=== PATIENT | male | born 1940 | race African-American/Black ===

== ENCOUNTER 2020-08-10 08:50 | Inpatient (IN) | payer OTHER ==
[~2020-08-10] VITALS: Ht 180.3 cm; Wt 77.1 kg
[2020-08-10] MEDS ORDERED: ATORVASTATIN CA20 MG (09:30)
[2020-08-10] MEDS ORDERED: AMLODIPINE BESYL5 MG (09:30)
[2020-08-10] MEDS ORDERED: METOPROLOL TAR100 MG (09:31)
[2020-08-10] MEDS ORDERED: LOSARTAN-HCTZ1 EAC2 (09:31)
[2020-08-10] MEDS ORDERED: LEVOTHYROXINE75 MCG (09:31)
== END 2020-08-16 14:18 | disposition home or self-care (01) | DRG 603 ==
LOC: ER 08:50 → SEC-K 14:24 → MEDI 14:24 → SEC-K 08-11 11:49 → MEDI 08-11 14:34
PROVIDERS: ADMIT Internal Medicine; ATTEND Internal Medicine
PROC: 8E0ZXY6 Isolation (ICD-10-PCS; principal; 2020-08-11)
DX: L03.113 Cellulitis of right upper limb (principal); L03.116 Cellulitis of left lower limb; L03.115 Cellulitis of right lower limb; E78.49 Other hyperlipidemia; E86.0 Dehydration; I87.2 Venous insufficiency (chronic) (peripheral); Z21 Asymptomatic human immunodeficiency virus [HIV] infection status; I12.9 Hypertensive chronic kidney disease with stage 1 through stage 4 chronic kidney disease, or unspecified chronic kidney disease; N18.9 Chronic kidney disease, unspecified; Z20.828 Contact with and (suspected) exposure to other viral communicable diseases; W18.39XA Other fall on same level, initial encounter

== ENCOUNTER → 2020-08-22 | Emergency (ER) | payer OTHER ==
[~2020-08-22] VITALS: Ht 180.3 cm; Wt 72.6 kg
[~2020-08-22] MED LIST: AMLODIPINE BESYL5 MG; ATORVASTATIN CA20 MG; LEVOTHYROXINE75 MCG; LOSARTAN-HCTZ1 EAC2; METOPROLOL TAR100 MG
== END | disposition home or self-care (01) ==
LOC: ER 09:03
DX: Z48.02 Encounter for removal of sutures (principal)

== ENCOUNTER 2021-05-05 20:08 | Inpatient (IN) | payer OTHER ==
[~2021-05-05] VITALS: Ht 152.4 cm; Wt 59.0 kg
== END 2021-06-06 17:54 | disposition expired | DRG 291 ==
LOC: ER 20:08 → ICU-2 05-06 00:48 → ICU 05-06 20:02
PROVIDERS: ADMIT Internal Medicine; ATTEND Internal Medicine
PROC: 3E0F7SF Introduction of Other Gas into Respiratory Tract, Via Natural or Artificial Opening (ICD-10-PCS; 2021-05-07)
PROC: 0W993ZX Drainage of Right Pleural Cavity, Percutaneous Approach, Diagnostic (ICD-10-PCS; principal; 2021-05-09)
PROC: 0BH17EZ Insertion of Endotracheal Airway into Trachea, Via Natural or Artificial Opening (ICD-10-PCS; 2021-05-09)
PROC: 5A1955Z Respiratory Ventilation, Greater than 96 Consecutive Hours (ICD-10-PCS; 2021-05-09)
PROC: 0W9930Z Drainage of Right Pleural Cavity with Drainage Device, Percutaneous Approach (ICD-10-PCS; 2021-05-10)
PROC: 02HV33Z Insertion of Infusion Device into Superior Vena Cava, Percutaneous Approach (ICD-10-PCS; 2021-05-10)
PROC: 0HB5XZX Excision of Chest Skin, External Approach, Diagnostic (ICD-10-PCS; 2021-05-10)
PROC: 30233N1 Transfusion of Nonautologous Red Blood Cells into Peripheral Vein, Percutaneous Approach (ICD-10-PCS; 2021-05-11)
PROC: 4A12X4Z Monitoring of Cardiac Electrical Activity, External Approach (ICD-10-PCS; 2021-05-11)
PROC: 5A1D70Z Performance of Urinary Filtration, Intermittent, Less than 6 Hours Per Day (ICD-10-PCS; 2021-05-11)
DX: I13.2 Hypertensive heart and chronic kidney disease with heart failure and with stage 5 chronic kidney disease, or end stage renal disease (principal); J96.01 Acute respiratory failure with hypoxia; A41.9 Sepsis, unspecified organism; R65.20 Severe sepsis without septic shock; J90 Pleural effusion, not elsewhere classified; N17.8 Other acute kidney failure; I44.2 Atrioventricular block, complete; N39.0 Urinary tract infection, site not specified; B20 Human immunodeficiency virus [HIV] disease; Z66 Do not resuscitate; I50.9 Heart failure, unspecified; I27.20 Pulmonary hypertension, unspecified; L82.1 Other seborrheic keratosis; I48.91 Unspecified atrial fibrillation; D69.49 Other primary thrombocytopenia; E87.6 Hypokalemia; B37.2 Candidiasis of skin and nail; Z99.2 Dependence on renal dialysis; D50.9 Iron deficiency anemia, unspecified